=== PATIENT | male | born 1950 | race Caucasian/White ===

== ENCOUNTER 2021-01-02 08:26 | Outpatient (CLI) | payer MEDICARE | END 2021-01-02 08:27 | disposition home or self-care (01) | LOC: CSHCT 08:26 | PROVIDERS: ATTEND Family Medicine | DX: D72.829 Elevated white blood cell count, unspecified (principal); R19.5 Other fecal abnormalities; R17 Unspecified jaundice; N13.8 Other obstructive and reflux uropathy; N20.2 Calculus of kidney with calculus of ureter; N28.1 Cyst of kidney, acquired | CPT/HCPCS: 74177 ==

== ENCOUNTER 2021-06-25 12:40 | Outpatient (CLI) | payer MEDICARE | END 2021-06-25 12:41 | disposition home or self-care (01) | LOC: CSHMRI 12:40 | PROVIDERS: ATTEND Family Medicine | DX: R41.3 Other amnesia (principal); G93.9 Disorder of brain, unspecified | CPT/HCPCS: 70551 ==